=== PATIENT | female | born 1940 ===

== ENCOUNTER 2019-01-08 13:55 | Outpatient (CLI) | payer MEDICARE, OTHER | END 2019-01-08 23:59 | disposition short-term general hospital (02) | LOC: EMS 13:55 | PROVIDERS: ATTEND Surgery | DX: S99.912A Unspecified injury of left ankle, initial encounter (principal); W01.0XXA Fall on same level from slipping, tripping and stumbling without subsequent striking against object, initial encounter; Y92.59 Other trade areas as the place of occurrence of the external cause | CPT/HCPCS: A0425; A0429 ==